=== PATIENT | female | born 1980 | race Caucasian/White ===

== ENCOUNTER 2025-01-26 14:41 | Outpatient (CLI) | payer BC, SELFPAY ==
[2025-01-26 14:32] LABS: Hematocrit 36.5 % (37.0-47.0); Hemoglobin 11.3 g/dL (12.2-16.2); Immature Granulocytes % 0.3 %; Mean Corpuscular HGB Conc 31.0 g/dL (31.8-35.4); Mean Corpuscular Hemoglobin 27.4 pg (27.0-31.2); Mean Corpuscular Volume 88.4 fl (81-99); Nucleated Red Blood Cells % 0 %; Platelet Count 294 K/mm3 (142-424); Red Blood Count 4.13 M/mm3 (4.20-5.40); Red Cell Distribution Width-SD 45.5 fL; White Blood Count 6.1 K/mm3 (4.8-10.8)
[2025-01-26 15:28] LABS: Albumin Level 4.2 g/dl (3.5-5.0); Chloride 106 mmol/L (98-107); Potassium 4.3 mmoL/L (3.5-5.1); Sodium 138 mmol/L (136-145)
[2025-01-26 15:30] LABS: Blood Urea Nitrogen 9 mg/dl (7-17); Creatinine,Serum 0.70 mg/dl (0.52-1.04); Estimated Glomerular Filt Rate 90 ml/min (>60); GFR (African American) 109 ML/MIN (>60)
[2025-01-26 15:31] LABS: Alanine Aminotransferase 24 U/L (12-78); Albumin/Globulin Ratio 1.6 (1.1-1.8); Alkaline Phosphatase 56 U/L (38-126); Anion Gap 11.3 mEq/L (5-15); Aspartate Amino Transferase 26 U/L (14-36); Bilirubin,Total 0.3 mg/dl (0.2-1.3); Calcium 9.1 mg/dl (8.4-10.2); Carbon Dioxide 25 mmol/L (22.0-30.0); Cholesterol 215 mg/dl (140-200); Globulin 2.7 g/dL (1.3-3.2); Glucose 96 mg/dl (74-100); HDL Cholesterol 62 mg/dl (40-60); Iron 52 ug/dL (37-170); Total Protein,Serum 6.9 g/dl (6.3-8.2); Triglycerides 62 mg/dl (30-150)
[2025-01-26 15:46] LABS: Total Iron Binding Capacity 422 ug/dL (265-497)
[2025-01-26 16:06] LABS: Thyroid Stimulating Hormone 1.68 uIU/mL (0.465-4.68)
== END 2025-01-26 23:59 | disposition home or self-care (01) ==
LOC: LAB.DROPOF 14:41
PROVIDERS: PCP Nurse Practitioner Family; Visit Provider Nurse Practitioner Family
DX: D64.9 Anemia, unspecified (principal); N92.0 Excessive and frequent menstruation with regular cycle; Z13.6 Encounter for screening for cardiovascular disorders; F41.9 Anxiety disorder, unspecified
CPT/HCPCS: 80053; 80061; 83540; 83550; 84443; 85025

== ENCOUNTER 2025-03-28 09:08 | Outpatient (CLI) | payer BC, SELFPAY ==
--- NOTE | 2025-03-28 09:00 | US_ITS ---
PROCEDURE: US TRANSVAGINAL CLINICAL INDICATION: aub COMPARISON: No exams were available for comparison FINDINGS: Transvaginal sonographic images of the pelvis were obtained. UTERUS: 9.2cm x 7.4cmx 5.9 cm anteverted with a combined endometrial thickness of 19.4mm. LEFT OVARY: 3 2.8 cmx1.2cmx1.8cm with a volume of 3.2ml. There are several small peripheral follicles. RIGHT OVARY: 3.1cmx 1.9 cmx2.2cm with a volume of 6.8ml. There is a corpus luteum measuring 1.4 cm x 1.1 cm Both ovaries are seen and appear normal. Doppler flow to both ovaries are seen. There is trace fluid in the cul-de-sac. IMPRESSION: 1. Anteverted, bulky uterus. The endometrium is homogeneous and thickened measuring 19.4 mm. 2. Both ovaries are seen and appear normal. The right ovary contains a corpus luteum. 3. There is trace fluid in the cul-de-sac. Dictated by: Marcos Moreno MD 03/28/2025 18:16 Marcos Moreno MD in [facility] 03/28/2025 18:16
--- OUTSIDE RECORDS SUMMARY | 2025-03-28 09:43 | XMS_ITS | Clinical Summary ---
Author Organization [facility] Address [address] [place] [id number] Phone Care Team Providers Care Senior Devops Engineer Name Role Phone Unavailable Primary Care Provider Unavailabl e Allergies Active Allergy Reactions Criticality Noted Date Comments Oxycodone-Acetaminophen Itching 10/14/2013 Medications ibuprofen (ADVIL;MOTRIN) 200 mg tablet Take by mouth every 8 hours as needed for Pain. Active naproxen (NAPROSYN) 500 mg tablet Take 1 Tab by mouth 2 times daily. 10 Tab 0 4 Active Additional Information Patient not taking.Reason: Pt electing to not take the medication, Reported on 04/07/2020 PHENYLEPHRINE/D M/ACETAMINOP/GG (TYLENOL COLD AND FLU SEVERE ORAL) Take by mouth. Activ e DM/PSEUDOEPHED/ ACETAMINOPH/CPM (THERAFLU COLD-COUGH ORAL) Take by mouth. Activ e norethindrone (MICRONOR) 0.35 mg Oral Tablet Take 1 Tab by mouth daily. 28 Tab 3 0 Active Surgical History Surgery Date Site/Laterality Comments SECTION 07/13/2004 - 07/12/2005 TUBAL LIGATION 07/13/2004 - 07/12/2005 Medical History Medical History Date Comments Ovarian cyst Social History Tobacco Use Types Packs/Day Years Used Date Smoking Tobacco: Every Day Cigarettes Smokeless Tobacco: Never Alcohol Use Standard Drinks/Week Comments No 0 (1 standard drink = 0.6 oz pur e alcohol) Comments No Sex and Gender Information Value Date Recorded Sex Assigned at Not on file Legal Sex Female 9:09 PM EDT Gender Identity Not on file Sexual Orientation Not on file Obstetrics History Last Filed Vital Signs Vital Sign Reading Time Taken Comments Blood Pressure 116/68 05/03/2020 10:52 AM EDT Pulse 84 04/07/2020 1:30 PM EDT Temperature 36.8 C (98.2 F) 04/07/2020 12:11 PM EDT Respiratory Rate 16 04/07/2020 1:30 PM EDT Oxygen Saturation 99% 04/07/2020 1:30 PM EDT Inhaled Oxygen Concentration - - Weight 72.1 kg (159 lb) 05/03/2020 10:52 AM EDT Height 160 cm (5' 3 ) 05/03/2020 10:52 AM EDT Body Mass Index 28.17 05/03/2020 10:52 AM EDT Plan of Treatment Health Maintenance Due Date Last Done Comments Annual Wellness Exam 12/27/1982 DTaP/TDaP/Td (1 - Tdap) 12/27/1998 Hepatitis B Vaccine (1 of 3 - 19+ 3-dose series) 12/27/1998 Cervical Cancer Screening 12/27/2000 Pap Smear 12/27/2000 HPV/Pap Cotest 12/27/2009 Breast Cancer Screening 2019 Cologuard 12/27/2024 Colon Cancer Screening 12/27/2024 Colonoscopy 12/27/2024 FIT 12/27/2024 Sigmoidoscopy 12/27/2024 Virtual Colonography 12/27/2024 COVID-19 Vaccine (1 - 2023-2 5 season) 2025 Influenza Vaccine (#1) 2025 Meningococcal B Vaccine Aged Out No l onger eligible based on patient's age to complete this topic Pneumococcal Vaccine 0-49 Aged Out No longer eligible based on patient's age to complete this topic Insurance [facility]
== END 2025-03-28 23:59 | disposition home or self-care (01) ==
LOC: RAD 09:08
PROVIDERS: PCP Obstetrics & Gynecology; Visit Provider Obstetrics & Gynecology
DX: N85.4 Malposition of uterus (principal); N85.2 Hypertrophy of uterus; N83.11 Corpus luteum cyst of right ovary; N93.9 Abnormal uterine and vaginal bleeding, unspecified; R93.89 Abnormal findings on diagnostic imaging of other specified body structures
CPT/HCPCS: 76830